=== PATIENT | female | born 1975 | race Caucasian/White ===

== ENCOUNTER 2017-01-26 19:02 | Emergency (ER) | payer OTHER ==
[~2017-01-26] VITALS: Ht 167.6 cm; Wt 79.0 kg
[2017-01-26 19:24] VITALS: BP 152/88
[2017-01-26] MEDS ORDERED: PROPARACAINE HCL 0.5% 15 ML OPHTHALMIC SOLUTION OD ONE (19:30)
== END 2017-01-26 20:54 | disposition home or self-care (01) ==
LOC: EMS 19:03
DX: S05.01XA Injury of conjunctiva and corneal abrasion without foreign body, right eye, initial encounter (principal); R03.0 Elevated blood-pressure reading, without diagnosis of hypertension; X58.XXXA Exposure to other specified factors, initial encounter; Y93.89 Activity, other specified; Y92.89 Other specified places as the place of occurrence of the external cause; Y99.8 Other external cause status
CPT/HCPCS: 99283

== ENCOUNTER 2023-02-14 21:45 | Emergency (ER) | payer OTHER ==
[~2023-02-14] VITALS: Ht 175.3 cm; Wt 81.8 kg
[2023-02-14 23:20] LABS: BASOPHILS % (AUTO) 0.7 % (0.0-2.0); EOSINOPHILS % (AUTO) 1.8 % (1.0-6.0); HEMOGLOBIN 7.8 g/dL (12.0-16.0); LYMPHOCYTES # (AUTO) 1.7 K/uL (1.0-4.8); LYMPHOCYTES % (AUTO) 33.5 % (22.0-44.0); MEAN CORPUSCULAR HEMOGLOBIN 20.2 pg (26.0-34.0); MEAN CORPUSCULAR HGB CONC 30.1 G/dL (31.0-37.0); MEAN CORPUSCULAR VOLUME 67 fL (80-100); MONOCYTES # (AUTO) 0.3 K/uL (0.1-1.0); MONOCYTES % (AUTO) 5.6 % (2.0-9.0); NEUTROPHILS % (AUTO) 58.4 % (40.0-70.0); PLATELET COUNT (AUTO) 226 K/uL (150-450); RED BLOOD CELL COUNT(AUTO) 3.87 MIL/uL (4.00-5.20); RED CELL DISTRIBUTION WIDTH 18.9 % (11.5-14.5)
[2023-02-14 23:27] LABS: ANION GAP 6 mmol/L (8-16); CALCIUM, TOTAL 8.5 mg/dL (8.8-10.5); CARBON DIOXIDE 25 mmol/L (22-29); CHLORIDE 107 mmol/L (98-107); CREATININE 0.89 mg/dL (0.60-1.30); GLOMERULAR FILTR. RATE CALC > 60 mL/min (>60); GLUCOSE,RANDOM 111 mg/dL (70-110); SODIUM SERUM 138 mmol/L (136-145); UREA NITROGEN, BLOOD 20 mg/dL (7-18)
[2023-02-14 23:30] LABS: ALANINE AMINOTRANSFERASE 17 U/L (12-78); ALBUMIN 3.5 g/dL (3.4-5.0); ALKALINE PHOSPHATASE 76 U/L (46-116); ASPARTATE AMINOTRANSFERASE 19 U/L (15-37); BILIRUBIN,TOTAL 0.2 mg/dL (0.1-1.0); TOTAL PROTEIN, SERUM 7.1 g/dL (6.4-8.2)
[2023-02-14 23:33] VITALS: BP 142/82
[2023-02-15] MEDS ORDERED: DiphenhydrAMINE HCL 50 MG/ML VIAL IVP ONE (00:15)
[2023-02-15] MEDS ORDERED: METOCLOPRAMIDE HCL 5 MG/ML 2 ML VIAL IVP ONE (00:15)
[2023-02-15] MEDS ORDERED: KETOROLAC TROMETHAMINE 30 MG/ML VIAL IVP ONE (00:15)
== END 2023-02-15 01:32 | disposition home or self-care (01) ==
LOC: EMS 21:46
DX: R51.9 Headache, unspecified (principal); Z98.890 Other specified postprocedural states
CPT/HCPCS: 99285; 70450; 80053; 84703; 85025; 96374; 96375; J1200; J1885; J2765